=== PATIENT | male | born 1940 | race Caucasian/White ===

== ENCOUNTER 2020-04-17 05:46 | Outpatient (RCR) | payer MEDICARE, OTHER ==
[~2020-04-17] VITALS: Ht 172.7 cm; Wt 99.2 kg
[~2020-04-17 05:46] MED LIST: ACHYD1T PO; ALLO300T2 PO; AMLO-250 PO; AMLO5TAB2 PO; CARV25TA PO; CHLO25TA2 PO; CHLO25TA22 PO; CRV25T PO; FEXO180T PO; GLIP10TA13 PO; GLIP5TAB13 PO; LEVO500T2 PO; LOSA100T7 PO; LOVA20TA2 PO; METF-399 PO; MNTL10T PO; MONT10TA26 PO; MTF500T PO; SERT50TA PO; SERT50TA9 PO; SMV20T PO; TERA2CAP4 PO; TRZS2T PO; ZLP10T PO
[2020-04-17] MEDS ORDERED: LISI10TA2 PO (13:48)
[2020-04-17] MEDS ORDERED: TERA5CAP3 PO (13:48)
[2020-04-17] MEDS ORDERED: SERT50TA9 PO (13:48)
[2020-04-17] MEDS ORDERED: DOXA2TAB2 PO (13:48)
== END 2020-04-21 10:16 | disposition home or self-care (01) ==
LOC: PREOP 05:46
PROVIDERS: ATTEND Surgery
DX: Z01.818 Encounter for other preprocedural examination (principal)

== ENCOUNTER → 2020-04-21 | Outpatient (CLI) | payer MEDICARE, OTHER ==
[~2020-04-21] MED LIST changes: +DOXA2TAB2 PO; +LISI10TA2 PO; +TERA5CAP3 PO
== END ==
LOC: LABNPT 06:05
PROVIDERS: ATTEND Nurse Practitioner Family
DX: Z01.812 Encounter for preprocedural laboratory examination (principal); Z20.828 Contact with and (suspected) exposure to other viral communicable diseases
CPT/HCPCS: 87635

== ENCOUNTER 2020-04-23 09:39 | Day surgery (SDC) | payer MEDICARE, OTHER ==
[~2020-04-23] VITALS: Ht 172.7 cm; Wt 99.2 kg
[2020-04-23] VITALS (12 sets, daily range): BP systolic 141–213; BP diastolic 57–88
[2020-04-23] MEDS ORDERED: NS IV 500 ML 500 ML ONE (09:43)
[2020-04-23] MEDS ORDERED: NS IV 500 ML 500 ML IV PRN (09:47)
[2020-04-23] MEDS ORDERED: LIDOCAINE JELLY 2% 6 ML SYRINGE MM PRN (10:00)
[2020-04-23] MEDS ORDERED: MIDAZOLAM 5 MG/5 ML (VERSED) VIAL IV ONE (10:00)
[2020-04-23] MEDS ORDERED: fentaNYL INJECTION 100 MCG/2 ML AMP IVP ONE (10:00)
[2020-04-23] MEDS ORDERED: MIDAZOLAM 5 MG/5 ML (VERSED) VIAL ONE ×2 (10:25→10:26)
[2020-04-23] MEDS ORDERED: fentaNYL INJECTION 100 MCG/2 ML AMP ONE (10:25)
[2020-04-23] MEDS ORDERED: LIDOCAINE JELLY 2% 6 ML SYRINGE ONE (10:25)
--- NOTE | 2020-04-23 11:27 | Conscious Sedation/ASA ---
Conscious Sedation Pre-Proced Time 11:00 ASA Score 2 For ASA 3 and 4: Consider anesthesia and medical clearance. Also, for patients with a history of failed moderate sedation consider anesthesia. Airway Lungs Heart ASA score ASA 1: a normal healthy patient ASA 2: a patient with a mild systemic disease (mid diabetes, controlled hypertension, obesity ASA 3: a patient with a severe systemic disease that limits activity (angina, COPD, prior Myocardial infarction) ASA 4: a patient with an incapacitating disease that is a constant threat to life (CHF, renal failure) ASA 5: a moribund patient not expected to survive 24 hrs. (ruptured aneurysm) ASA 6: a declared brain- patient whose organs are being harvested. For emergent operations, add the letter E after the classification Mallampati Classification Grade 2 Sedation Plan Analgesia, Amnesia, Plan communicated to team members, Discussed options with patient/fam, Discussed risks with patient/fam The patient is an appropriate candidate to undergo the planned procedure, sedation, and anesthesia. The patient immediately re-assessed prior to indication. RAKESH JONES MD Apr 23, 2020 11:27
--- NOTE | 2020-04-23 11:28 | Progress Note-Pre Operative ---
Pre-Operative Progress Note H&P Reviewed The H&P was reviewed, patient examined and no changes noted. Date Seen by Provider: Apr 23, 2020 Time Seen by Provider: 11:00 Date H&P Reviewed: Apr 23, 2020 Time H&P Reviewed: 11:00 Pre-Operative Diagnosis: peristent diarrhea RAKESH JONES MD Apr 23, 2020 11:28
--- NOTE | 2020-04-23 11:29 | Discharge Inst-Surgical ---
D/C Lap Instructions-KAREN Follow Up Activity as tolerated High Fiber Diet 25g or more per day Avoid Alcohol, Caffeine, Spicy [place] and Acid foods. Drink 64 fluid oz or more of fluids per day. Symptoms to Report: Fever over 101 degree F, Nausea/Vomiting If any problems/questions: Contact your physician or go to Emergency Room RAKESH JONES MD Apr 23, 2020 11:29
[2020-04-23] MEDS ORDERED: ACETAMINOPHEN 325 MG TABLET PO PRN (11:30)
[2020-04-23] MEDS ORDERED: ONDANSETRON 4 MG/2 ML (SDV) Z0FRAN IVP PRN (11:30)
[2020-04-23] MEDS ORDERED: HYDROcodone/APAP 5 MG/325 MG (LORTAB) TAB PO PRN (11:30)
[2020-04-23] MEDS ORDERED: morphine INJ 10 MG/ML 1ML (SYR OR VIAL) IVP PRN ×2 (11:30)
--- NOTE | 2020-04-23 12:34 | Progress Note-Post Operative ---
Post-Operative Progess Note Surgeon (s)/Municipal Court Magistrate (s) Surgeon RAKESH JONES MD Municipal Court Magistrate: none Pre-Operative Diagnosis peristent diarrhea Post-Operative Diagnosis chornic stage 2 ext and int hemorrhoids. Procedure & Operative Findings Date of Procedure 04/23/20 Procedure Performed/Findings colonoscopy Anesthesia Type cs Estimated Blood Loss Estimated blood loss (mL): minimal Specimens/Packing Specimens Removed none RAKESH JONES MD Apr 23, 2020 12:34
--- NOTE | 2020-04-24 20:44 | OPERATIVE REPORT ---
DATE OF SERVICE: 04/23/2020 PREOPERATIVE DIAGNOSIS: Change in bowel habits encompassing diarrhea. 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 Remainder of the colon and rectum appeared normal. PROCEDURE: Colonoscopy. SURGEON: Rakesh Jones MD. ANESTHESIA: Conscious sedation. ESTIMATED BLOOD LOSS: Minimal. FINDINGS: Chronic stage II external and internal hemorrhoids. Remainder of the colon and rectum appeared normal. DISPOSITION: The patient tolerated the procedure well. INDICATIONS: The patient is an 80-year-old male in need of a colonoscopy. He reports that he has had loose stools in the past several weeks. He reports that before this, he had normal formed bowel movements once a day and now states that he does have several loose bowel movements daily. He has had previous colonoscopies before and reports several polyps removed, which were biopsied and found to be benign. He does have a number of medical comorbidities and is on a number of different medications. DESCRIPTION OF PROCEDURE: The patient was brought to the endoscopy suite, laid in the left lateral decubitus position. After adequate IV pain and sedated medications and conscious sedation anesthesia, digital rectal examination was performed. Mild chronic stage II external and internal hemorrhoids were identified, which were not actively edematous nor inflamed and no bleeding. Normal sphincter tone was felt and there were no palpable masses. Prostate gland was palpable and appeared normal. The endoscope was then intubated to the anus and rectum gently insufflated. The endoscope was then advanced through the valves of Calderon of the rectum with no polyps or any neoplasms identified. We then proceeded through the sigmoid colon where no diverticulosis identified. The endoscope was then advanced to the remainder of the descending, transverse and ascending colon to the cecum. These segments were normal. There were no polyps or any neoplasms identified as well as no mucosal inflammatory changes to indicate any colitis. The endoscope was then slowly withdrawn while taking a second look and suctioning of residual air with no additional findings. The patient tolerated the procedure well. We feel that his change in bowel habits and diarrhea are likely due to medications and that he needs to proceed with medical management with the incorporation of a fiber supplement to make his stools more solid. It was also explained that he also wants to avoid constipation and hard or well-formed stools, which can also be problematic and to take in a fiber on a daily basis to have stools with some form unless episodes of diarrhea. Job ID: [id number] DocumentID: [id number] Dictated Date: 04/24/2020 12:40:37 Rn Private Duty Date: 04/24/2020 20:43:51 Dictated By: RAKESH JONES MD
== END 2020-04-23 13:00 | disposition home or self-care (01) ==
LOC: ENDO 09:39
PROVIDERS: ATTEND Surgery
DX: K64.1 Second degree hemorrhoids (principal); R19.7 Diarrhea, unspecified; R15.9 Full incontinence of feces; Z86.010 Personal history of colon polyps; I10 Essential (primary) hypertension; E11.9 Type 2 diabetes mellitus without complications; M10.9 Gout, unspecified; F41.9 Anxiety disorder, unspecified; F32.9 Major depressive disorder, single episode, unspecified; E78.00 Pure hypercholesterolemia, unspecified; M19.90 Unspecified osteoarthritis, unspecified site; Z96.653 Presence of artificial knee joint, bilateral; Z79.84 Long term (current) use of oral hypoglycemic drugs; Z79.899 Other long term (current) drug therapy; Z87.891 Personal history of nicotine dependence